=== PATIENT | female | born 1940 | race African-American/Black ===

== ENCOUNTER 2019-05-20 13:03 | Emergency (ER) | payer MEDICARE, MEDICAID ==
[~2019-05-20] VITALS: Ht 162.6 cm; Wt 54.0 kg
[~2019-05-20 13:03] MED LIST: NITRO; [UNRECOGNIZED DRUG - REMARK]
[2019-05-20] MEDS ORDERED: SODIUM CHLORIDE 0.9% 1,000 ML IV ONE (13:43)
[2019-05-20 14:36] LABS: BASOPHILS % 1.5 % (0.0-2.0); EOSINOPHILS % 3.6 % (0.0-5.0); HEMATOCRIT. 42.8 % (36.0-48.0); LYMPHOCYTES % 12.1 % (20.0-50.0); MEAN CORPUSCULAR VOLUME 79.3 fL (81.0-99.0); MEAN PLATELET VOLUME 10.2 fl (7.4-10.4); NEUTROPHILS % 76.8 % (40.0-76.0); PLATELET 189 x1000/uL (130-400); RED CELL DISTRIBUTION WIDTH 19.7 % (11.6-14.6)
[2019-05-20 14:43] LABS: CHLORIDE 102 mEq/L (98-107)
[2019-05-20 14:49] LABS: CLARITY URINE CLEAR (CLEAR); COLOR URINE YELLOW (YELLOW); KETONES URINE NEGATIVE (NEGATIVE); LEUKOCYTE ESTERASE URINE TRACE (NEGATIVE); NITRITE URINE NEGATIVE (NEGATIVE); OCCULT BLOOD URINE NEGATIVE (NEGATIVE); PH URINE 6.5 (4.5-8.0); PROTEIN URINE NEGATIVE (NEGATIVE); SPECIFIC GRAVITY URINE 1.003 (1.005-1.030); UROBILINOGEN URINE 0.2 E.U./dL (0.2-1.0)
[2019-05-20] MEDS ORDERED: ACETAMINOPHEN 325MG TABLET PO ONE (17:00)
[2019-05-20 17:20] VITALS: BP 169/68
== END 2019-05-20 18:00 | disposition home or self-care (01) ==
LOC: ER 13:53 → CANBEDREQ 19:30
DX: R53.1 Weakness (principal); J45.909 Unspecified asthma, uncomplicated; I10 Essential (primary) hypertension; I25.2 Old myocardial infarction; Z88.0 Allergy status to penicillin
CPT/HCPCS: 36415; 71045; 80053; 81003; 83605; 84145; 84484; 85025; 85610; 87040; 87086; 93005; 99284; J7030

== ENCOUNTER 2020-04-21 17:41 | Emergency (ER) | payer MEDICARE, MEDICAID ==
[~2020-04-21] VITALS: Ht 170.2 cm; Wt 65.0 kg
[2020-04-21 19:03] LABS: BASOPHILS % 0.9 % (0.0-2.0); EOSINOPHILS % 4.8 % (0.0-5.0); HEMATOCRIT. 41.6 % (36.0-48.0); LYMPHOCYTES % 15.8 % (20.0-50.0); MEAN CORPUSCULAR HEMOGLOBIN 30.2 pg (28.0-32.0); MEAN CORPUSCULAR VOLUME 89.9 fL (81.0-99.0); MEAN PLATELET VOLUME 10.2 fl (7.4-10.4); MONOCYTES % 7.5 % (2.0-8.0); PLATELET 202 x1000/uL (130-400); RED BLOOD CELL COUNT 4.63 mill/uL (4.2-5.4); RED CELL DISTRIBUTION WIDTH 17.1 % (11.6-14.6)
[2020-04-21 19:10] LABS: CHLORIDE 105 mEq/L (98-107); D-DIMER 0.38 mg/L FEU (<0.50); PROTHROMBIN TIME 10.2 sec (9.6-11.0)
[2020-04-21 20:29] VITALS: BP 113/73
== END 2020-04-21 20:40 | disposition home or self-care (01) ==
LOC: ER 17:41
DX: R04.2 Hemoptysis (principal); J45.909 Unspecified asthma, uncomplicated; I10 Essential (primary) hypertension; Z87.891 Personal history of nicotine dependence; Z88.0 Allergy status to penicillin
CPT/HCPCS: 36415; 71045; 80053; 83880; 84484; 85025; 85379; 93005; 99285

== ENCOUNTER 2025-03-26 16:43 | Emergency (ER) | payer MEDICARE, MEDICAID ==
[~2025-03-26] VITALS: Ht 160 cm; Wt 55.0 kg
[~2025-03-26 16:43] MED LIST changes: +AMLO5TAB88 PO; +ATOR20TA PO; -NITRO; +PANT40TA51 PO; +POLY17PO43 PO; +SENN-362 PO; -[UNRECOGNIZED DRUG - REMARK]
[2025-03-26 17:18] LABS: HEMATOCRIT. 31.3 % (36.0-48.0); HEMOGLOBIN. 9.8 g/dL (12.0-16.0); MEAN PLATELET VOLUME 9.3 fl (7.4-10.4); PLATELET 236 x1000/uL (130-400); RED BLOOD CELL COUNT 3.58 mill/uL (4.2-5.4); RED CELL DISTRIBUTION WIDTH 15.2 % (11.6-14.6)
[2025-03-26 17:30] LABS: CREATININE 1.2 mg/dL (0.6-1.0); UREA NITROGEN BLOOD 12 mg/dL (9-23)
[2025-03-26] MEDS ORDERED: ALBUTEROL (0.083%) 2.5MG/3ML NEB HHN ONE (17:30)
[2025-03-26] MEDS ORDERED: IPRATROPIUM BROMIDE (0.02%) 0.5MG/2.5ML NEB HHN ONE (17:30)
[2025-03-26 17:31] LABS: TROPONIN I HIGH SENSITIVITY 18 ng/L (3.0-34)
[2025-03-26 17:36] LABS: EOSINOPHILS % MANUAL 3.0 % (0.0-5.0); LYMPHOCYTES % MANUAL 11.0 % (20.0-60.0); MONOCYTES % MANUAL 11.0 % (2.0-8.0); NEUTROPHILS % MANUAL 75.0 % (45.0-75.0); PLATELET ESTIMATE NORMAL
[2025-03-26] MEDS: PREDNISONE 20MG TABLET PO ONE (18:37)
[2025-03-26 18:40] VITALS: TEMP 36.8
[2025-03-26 20:40] VITALS: PULSE 85; RESP 20; O2SAT 99
[2025-03-26] MEDS: ALBUTEROL (0.083%) 2.5MG/3ML NEB HHN SCH (20:44)
[2025-03-26] MEDS: IPRATROPIUM BROMIDE (0.02%) 0.5MG/2.5ML NEB HHN SCH (20:45)
[2025-03-26 21:00] VITALS: BP 140/62; PULSE 103; RESP 19; O2SAT 99
[2025-03-26] MEDS ORDERED: ACETAMINOPHEN 325MG TABLET PO PRN ×2 (21:15)
[2025-03-26] MEDS ORDERED: IPRATROPIUM/ALBUTEROL 0.5-3(2.5)MG/3ML NEB HHN PRN (21:15)
[2025-03-26] MEDS ORDERED: DOCUSATE SODIUM 100MG CAPSULE PO PRN (21:15)
[2025-03-26] MEDS ORDERED: ONDANSETRON HCL 4MG/2ML INJ IV PRN (21:15)
[2025-03-26] MEDS ORDERED: GUAIFENESIN 200MG/10ML SUGAR FREE UDC PO PRN (21:15)
[2025-03-26] MEDS ORDERED: CLONIDINE 0.1MG TABLET PO PRN (21:15)
[2025-03-26] MEDS ORDERED: P20 MT (21:22)
[2025-03-26] MEDS ORDERED: ALBU18HF2 IH (21:22)
[2025-03-26] MEDS ORDERED: IPRATROPIUM/ALBUTEROL 0.5-3(2.5)MG/3ML NEB HHN SCH (22:00)
[2025-03-26] MEDS ORDERED: SODIUM CHLORIDE 0.9% 1,000 ML IV SCH (22:45)
[2025-03-27] MEDS ORDERED: PANTOPRAZOLE 40MG DR TABLET PO SCH (07:50)
[2025-03-27] MEDS ORDERED: POLYETHYLENE GLYCOL 3350 (17GM) 1 DOSE PACK PO SCH (09:00)
[2025-03-27] MEDS ORDERED: BUDESONIDE 0.25MG/2ML NEB HHN SCH (09:00)
[2025-03-27] MEDS ORDERED: PREDNISONE 20MG TABLET PO SCH (09:00)
[2025-03-27] MEDS ORDERED: ENOXAPARIN 30MG/0.3ML SYR SUBCUT SCH (09:00)
[2025-03-27] MEDS ORDERED: AMLODIPINE 5MG TABLET PO SCH (09:00)
[2025-03-27] MEDS ORDERED: SENNOSIDES 8.6MG TABLET PO SCH (21:00)
[2025-03-27] MEDS ORDERED: ATORVASTATIN CALCIUM 20MG TABLET PO SCH (21:00)
== END 2025-03-26 21:26 | disposition left against medical advice (07) ==
LOC: ER 16:43 → EDBEDREQTM 20:54 → EDBEDREQ 20:54 → ER 21:26 → CMPBEDREQ 03-27 19:21
DX: J45.901 Unspecified asthma with (acute) exacerbation (principal); D64.9 Anemia, unspecified; I10 Essential (primary) hypertension; J44.1 Chronic obstructive pulmonary disease with (acute) exacerbation; M19.90 Unspecified osteoarthritis, unspecified site; Z90.710 Acquired absence of both cervix and uterus; Z79.899 Other long term (current) drug therapy; Z79.52 Long term (current) use of systemic steroids; Z79.51 Long term (current) use of inhaled steroids; Z88.0 Allergy status to penicillin
CPT/HCPCS: 99285; 71045; 80048; 83880; 85025; 84484; 36415; 94640; 93005; J7512; 94664